=== PATIENT | male | born 1965 | race African-American/Black ===

== ENCOUNTER 2019-06-20 08:21 | Inpatient (IN) | payer OTHER ==
[2019-06-20 08:56] VITALS: BMI 21.7
--- NOTE | 2019-06-20 09:27 | HP ---
COWS - Scale Resting Pulse: 1= [place] 81-100 Sweatin= Chills/Flushing Restless Observation: 1= Difficult to Sit Still Pupil Size: 1= Pupils >than Normal Bone or Joint Aches: 2= Severe Diffuse Aches Runny Nose/ Eye Tearin= Nasal Congestion GI Upset > 30mins: 2= Nausea/Diarrhea Tremor Observation: 2= Slight Tremor Visible Yawning Observation: 1= 1-2x During Session Anxiety or Irritability: 2=Irritable/Anxious Goose Flesh Skin: 0=Smooth Skin COWS Score: 14 CIWA Score Nausea/Vomitin Muscle Tremors: 2 Anxiety: 3 Agitation: 2 Paroxysmal Sweats: 1-Minimal Palms Moist Orientation: 0-Oriented Tacttile Disturbances: 1-Very Mild Itch/Numbness Auditory Disturbances: 0-None Visual Disturbances: 0-None Headache: 2-Mild CIWA-Ar Total Score: 13 - Admission Criteria OASAS Guidelines: Admission for Medically Managed Detox: Requires at least one of the followin. CIWA greater than 12 2. Seizures within the past 24 hours 3. Delirium tremens within the past 24 hours 4. Hallucinations within the past 24 hours 5. Acute intervention needed for co occurring medical disorder 6. Acute intervention needed for co occurring psychiatric disorder 7. Severe withdrawal that cannot be handled at a lower level of care (continued vomiting, continued diarrhea, abnormal vital signs) requiring intravenous medication and/or fluids 8. Admitting History and Physical - Admission Chief Complaint: i need helpto stop using heroin,oxycontin,alcohol History of Present Illness: this 53 years old male with heroin,oxycontin and alcohol dependence seeking detox,need help to stop ,withdrawal symptom, denied seizure denied syncope weight loss nicotine dependence low back pain with sciatica right History Source: Patient Limitations to Obtaining History: No Limitations - Past Medical History Musculoskeletal: Yes: Chronic low back pain (sciatica right) - Smoking History Smoking history: Current every day smoker Have you smoked in the past 12 months: Yes Aproximately how many cigarettes per day: 10 - Alcohol/Substance Use Hx Alcohol Use: Yes History of Substance Use: reports: Heroin - Social History Usual Living Arrangement: Yes: With Significant Other (with girlfriend) ADL: Support Services Occupation: unemployed on disability History of Recent Travel: No Admission ROS BHS - HPI Chief Complaint: i need help to stop using heroin,oxycontin,alcohol Allergies/Adverse Reactions: Allergies Allergy/AdvReac Type Severity Reaction Status Date / Time No Known Allergies Allergy Verified 06/20/19 08:47 History of Present Illness: this 53 years old with heroin,oxycontin and alcohol dependence,seeking detox, withdrawal symptom denied seizure denied syncope chronic low back pain with sciatica right - Ebola screening Have you traveled outside of the country in the last 21 days: No Have you had contact with anyone from an Ebola affected area: No - Review of Systems Constitutional: Chills, Loss of Appetite, Malaise, Night Sweats, Changes in sleep, Weakness, Unintentional Wgt. Loss EENT: reports: Tearing, Nose Congestion Respiratory: reports: No Symptoms reported Cardiac: reports: No Symptoms Reported GI: reports: Nausea, Poor Appetite, Abdominal cramping : reports: No Symptoms Reported, Testicular Pain Musculoskeletal: reports: Back Pain, Muscle Pain, Joint Stiffness, Other (low back pain) Integumentary: reports: Dryness Neuro: reports: Headache, Tremors Endocrine: reports: No Symptoms Reported Hematology: reports: No Symptoms Reported Psychiatric: reports: No Sypmtoms Reported Other Systems: Reviewed and Negative Patient History - Patient Medical History Hx Anemia: No Hx Asthma: No Hx Chronic Obstructive Pulmonary Disease (COPD): No Hx Cancer: No Hx Cardiac Disorders: No Hx Hypertension: No Hx Hypercholesterolemia: No Hx Pacemaker: No HX Cerebrovascular Accident: No Hx Seizures: No Hx Diabetes: No Hx Gastrointestinal Disorders: No Hx Liver Disease: No Hx Genitourinary Disorders: No Hx Sexually Transmitted Disorders: No Hx Renal Disease (ESRD): No Hx Thyroid Disease: No Hx Human Immunodeficiency Virus (HIV): No (05/06 negative) Hx Hepatitis C: No Hx Depression: No Hx Suicide Attempt: No Hx Bipolar Disorder: No Hx Schizophrenia: No Other Medical History: no suicidal,no homicidal,low back pain with sciatica since 2015 - Patient Surgical History Past Surgical History: No Hx Neurologic Surgery: No Hx Cataract Extraction: No Hx Cardiac Surgery: No Hx Lung Surgery: No Hx Breast Surgery: No Hx Breast Biopsy: No Hx Abdominal Surgery: No Hx Appendectomy: No Hx Cholecystectomy: No Hx Genitourinary Surgery: No Hx Section: No Hx Orthopedic Surgery: No Anesthesia Reaction: No - PPD History Previous Implant?: Yes Documented Results: Negative w/o proof Implanted On Prior R Admission?: No PPD to be Administered?: Yes - Smoking Cessation Smoking history: Current every day smoker Have you smoked in the past 12 months: Yes Aproximately how many cigarettes per day: 10 Hx Chewing Tobacco Use: No Initiated information on smoking cessation: Yes 'Breaking Loose' booklet given: 06/20/19 - Substance & Tx. History Hx Alcohol Use: Yes Hx Substance Use: Yes Substance Use Type: Alcohol, Heroin, Opiates Hx Substance Use Treatment: No - Substances abused Alcohol Substance route: Oral Frequency: Daily Amount used: (4) 24oz beers, 1 PINT of vodka Age of first use: 6 Date of last use: 06/20/19 Oxycontin Other (specify): 15mg Substance route: Oral Frequency: Daily Amount used: 5 tabs Age of first use: 51 Date of last use: 06/18/19 Heroin Substance route: Inhalation Frequency: Daily Amount used: 2 BAGS Age of first use: 33 Date of last use: 06/20/19 Admission Physical Exam [facility] - Vital Signs Vital Signs: Vital Signs - 24 hr 06/20/19 08:51 Temperature 98.2 F Pulse Rate 85 Respiratory 18 Rate Blood Pressure 131/69 - Physical General Appearance: Yes: Moderate Distress, Tremorous, Irritable, Sweating, Anxious HEENTM: Yes: Normal ENT Inspection, HARLAN, Pharynx Normal Respiratory: Yes: Lungs Clear, Normal Breath Sounds, No Respiratory Distress Neck: Yes: Within Normal Limits, Supple, Trachea in good position Breast: Yes: Within Normal Limits Cardiology: Yes: Within Normal Limits, Regular Rhythm, Regular Rate, S1, S2 Abdominal: Yes: Within Normal Limits, Normal Bowel Sounds, Non Tender, Flat, Soft Genitourinary: Yes: Within Normal Limits Back: Yes: Muscle Spasm Musculoskeletal: Yes: full range of Motion, Back pain, Muscle Pain Extremities: Yes: Tremors Neurological: Yes: test hole driller II-XII NML intact, Fully Oriented, Alert, Motor Strength 5/5 Integumentary: Yes: Within Normal Limits, Dry Lymphatic: Yes: Within Normal Limits - Diagnostic (1) Opioid dependence with withdrawal Current Visit: Yes Status: Acute (2) Alcohol dependence with uncomplicated withdrawal Current Visit: Yes Status: Acute (3) Alcohol dependence with intoxication Current Visit: Yes Status: Acute (4) Chronic low back pain with sciatica Current Visit: Yes Status: Acute Cleared for Admission BHS - Detox or Rehab [facility] Level of Care: Medically Managed Detox Regimen/Protocol: Methadone/Librium Breathalyzer - Breathalyzer Breathalyzer: 202 Urine Drug Screen - Test Device Lot number: [id number] Expiration date: 03/17/21 - Control Is test valid?: Yes - Results Drug screen NEGATIVE: No Urine drug screen results: FEN-Fentanyl, MOP-Opiates, OXY-Oxycodone Inpatient Rehab Admission - Rehab Decision to Admit Inpatient rehab admission?: No
[2019-06-20] MEDS ORDERED: MENTHOL/PHENOL 1 EACH UD MM PRN (09:40)
[2019-06-20] MEDS ORDERED: chlordiazePOXIDE HCL 25 MG CAPSULE PO PRN (09:40)
[2019-06-20] MEDS ORDERED: MAGNESIUM CITRATE 300 ML BOTTLE PO PRN (09:40)
[2019-06-20] MEDS ORDERED: MAGNESIUM HYDROX 2400MG/30ML ORAL SUSPENSION 30 ML CUP PO PRN (09:40)
[2019-06-20] MEDS ORDERED: IBUPROFEN 400 MG TABLET (FP) PO PRN (09:40)
[2019-06-20] MEDS ORDERED: cloNIDine HCL 0.1 MG TABLET PO PRN (09:40)
[2019-06-20] MEDS ORDERED: BISMUTH SUBSALICYLATE 262 MG/15 ML BTL PO PRN (09:40)
[2019-06-20] MEDS ORDERED: NICOTINE POLACRILEX 2 MG GUM BUC PRN (09:40)
[2019-06-20] MEDS ORDERED: MAG HYDROX/AL HYDROX/SIMETH 30 ML UNIT-DOSE CUP PO PRN (09:40)
[2019-06-20] MEDS ORDERED: ACETAMINOPHEN 325 MG TABLET (FP) PO PRN ×2 (09:40)
[2019-06-20] MEDS ORDERED: METHOCARBAMOL 500 MG TABLET PO PRN (09:40)
[2019-06-20] MEDS ORDERED: hydrOXYzine PAMOATE 25 MG CAPSULE (FP) PO PRN (09:40)
[2019-06-20] MEDS ORDERED: METHADONE HCL 10 MG TABLET (FOR DETOX USE ONLY) PO ONE (10:25)
[2019-06-20] MEDS: chlordiazePOXIDE HCL 25 MG CAPSULE PO SCH ×3 (10:33→22:02)
[2019-06-20] MEDS: PRENATAL VITAMINS W/ FOLIC ACID TABLET (FP) PO SCH (10:37)
[2019-06-20 15:28] LABS: HEMATOCRIT 40.5 % (35.4-49); HEMOGLOBIN 13.7 GM/dL (11.7-16.9); MCH 34.7 pg (25.7-33.7); MCHC 33.7 g/dl (32.0-35.9); MEAN CELL VOLUME 102.8 fl (80-96); PLATELET COUNT 204 K/MM3 (134-434); RBC 3.94 M/mm3 (4.00-5.60); RDW 13.8 % (11.9-15.9); WHITE BLOOD COUNT 5.1 K/mm3 (4.0-10.0)
[2019-06-20 15:42] LABS: ALBUMIN 4.3 g/dl (3.4-5.0); BILIRUBIN,TOTAL 0.4 mg/dL (0.2-1); BLOOD UREA NITROGEN 10.1 mg/dL (7-18); CALCIUM 9.1 mg/dL (8.5-10.1); CREATININE 0.7 mg/dL (0.55-1.3); POTASSIUM 4.1 mmol/L (3.5-5.1); TOT PROT 8.1 g/dl (6.4-8.2)
[2019-06-20 15:51] LABS: SICKLE CELL SCREEN NEGATIVE (NEGATIVE)
[2019-06-20] MEDS: NICOTINE 21 MG/24 HOURS TOPICAL PATCH TD SCH (21:26)
[2019-06-20] MEDS: THIAMINE HCL 100 MG TABLET (FP) PO SCH (21:26)
[2019-06-20] MEDS: MELATONIN 5 MG TABLETS PO PRN (22:03)
[2019-06-21] MEDS: chlordiazePOXIDE HCL 25 MG CAPSULE PO SCH ×4 (05:53→22:26)
[2019-06-21] MEDS ORDERED: METHADONE HCL 5 MG TABLET (FOR DETOX USE ONLY) ONE (09:14)
[2019-06-21] MEDS ORDERED: METHADONE HCL 10 MG TABLET (FOR DETOX USE ONLY) ONE (09:14)
[2019-06-21] MEDS ORDERED: METHADONE (DETOX) 20 MG, METHADONE (DETOX) 5 MG PO ONE (10:00)
[2019-06-21] MEDS: NICOTINE 21 MG/24 HOURS TOPICAL PATCH TD SCH (10:33)
[2019-06-21] MEDS: PRENATAL VITAMINS W/ FOLIC ACID TABLET (FP) PO SCH (10:34)
[2019-06-21 10:41] LABS: PH,URINE 8.5 (5.0-8.0); URINE APPEARANCE CLEAR; URINE BILIRUBIN NEGATIVE (NEGATIVE); URINE COLOR YELLOW; URINE GLUCOSE (UA) NEGATIVE (NEGATIVE); URINE KETONE NEGATIVE (NEGATIVE); URINE LEUK ESTERASE NEGATIVE (NEGATIVE); URINE NITRITE NEGATIVE (NEGATIVE); URINE PROTEIN NEGATIVE (NEGATIVE)
--- NOTE | 2019-06-21 14:44 | PN ---
S CIWA - CIWA Score Nausea/Vomitin-Mild Nausea/No Vomiting Muscle Tremors: 3 Anxiety: 2 Agitation: 2 Paroxysmal Sweats: 2 Orientation: 0-Oriented Tacttile Disturbances: 0-None Auditory Disturbances: 0-None Visual Disturbances: 0-None Headache: 1-Very Mild CIWA-Ar Total Score: 11 BHS COWS - Scale Resting Pulse: 1= [place] 81-100 Sweatin= Chills/Flushing Restless Observation: 1= Difficult to Sit Still Pupil Size: 1= Pupils >than Normal Bone or Joint Aches: 1= Mild Discomfort Runny Nose/ Eye Tearin= Nasal Congestion GI Upset > 30mins: 1= Stomach Cramp Tremor Observation of Outstretched Hands: 1= Tremor [place], Not Seen Yawning Observation: 1= 1-2x During Session Anxiety or Irritability: 1=Feels Anxious/Irritable Goose Flesh Skin: 3=Piloerection COWS Score: 13 S Progress Note (SOAP) Subjective: pt here for heroin and alcohol detox O: Vital Signs - 24 hr 06/20/19 06/20/19 06/21/19 17:37 21:54 00:30 Temperature 97.9 F 99.3 F Pulse Rate 90 84 Respiratory 18 18 18 Rate Blood Pressure 144/89 150/90 06/21/19 06/21/19 06/21/19 03:50 08:41 10:06 Temperature 98.2 F 98.2 F Pulse Rate 66 77 Respiratory 18 18 16 Rate Blood Pressure 146/83 137/80 Laboratory Tests 06/20/19 06/20/19 06/20/19 09:40 09:40 09:40 WBC 5.1 RBC 3.94 L Hgb 13.7 Hct 40.5 MCV 102.8 H MCH 34.7 H MCHC 33.7 RDW 13.8 Plt Count 204 MPV 9.0 Sickle Cell Screen Negative Sodium 136 Potassium 4.1 Chloride 100 Carbon Dioxide 28 Anion Gap 9 BUN 10.1 Creatinine 0.7 Est GFR (CKD-EPI)AfAm 124.87 Est GFR (CKD-EPI)NonAf 107.74 Random Glucose 87 Calcium 9.1 Total Bilirubin 0.4 AST 99 H ALT 75 H Alkaline Phosphatase 133 H Total Protein 8.1 Albumin 4.3 Urine Color Urine Appearance Urine pH Ur Specific [place] Urine Protein Urine Glucose (UA) Urine Ketones Urine Blood Urine Nitrite Urine Bilirubin Urine Urobilinogen Ur Leukocyte Esterase RPR Titer Nonreactive 06/21/19 07:20 WBC RBC Hgb Hct MCV MCH MCHC RDW Plt Count MPV Sickle Cell Screen Sodium Potassium Chloride Carbon Dioxide Anion Gap BUN Creatinine Est GFR (CKD-EPI)AfAm Est GFR (CKD-EPI)NonAf Random Glucose Calcium Total Bilirubin AST ALT Alkaline Phosphatase Total Protein Albumin Urine Color Yellow Urine Appearance Clear Urine pH 8.5 H Ur Specific [place] 1.013 Urine Protein Negative Urine Glucose (UA) Negative Urine Ketones Negative Urine Blood Negative Urine Nitrite Negative Urine Bilirubin Negative Urine Urobilinogen 1.0 Ur Leukocyte Esterase Negative RPR Titer high MCV, no anemia a/p: continue alcohol and opioid detox pt has no complaints
[2019-06-21] MEDS: THIAMINE HCL 100 MG TABLET (FP) PO SCH (22:26)
[2019-06-21] MEDS: MELATONIN 5 MG TABLETS PO PRN (22:26)
--- NOTE | 2019-06-21 23:25 | EKG ---
Test Reason : Blood Pressure : / mmHG Vent. Rate : 081 BPM Atrial Rate : 081 BPM P-R Int : 144 ms QRS Dur : 084 ms QT Int : 376 ms P-R-T Axes : 066 088 065 degrees QTc Int : 436 ms NORMAL SINUS RHYTHM NORMAL ECG NO PREVIOUS ECGS AVAILABLE Confirmed by LINDA AMARAL MD ([id number]) on 06/21/2019 11:25:10 PM Referred By: Confirmed By:LINDA AMARAL MD
[2019-06-22] MEDS: chlordiazePOXIDE HCL 25 MG CAPSULE PO SCH ×2 (05:56→10:31)
[2019-06-22 09:11] VITALS: TEMP 97.7
[2019-06-22] MEDS ORDERED: METHADONE HCL 10 MG TABLET (FOR DETOX USE ONLY) PO ONE (10:00)
[2019-06-22] MEDS: NICOTINE 21 MG/24 HOURS TOPICAL PATCH TD SCH (10:31)
[2019-06-22] MEDS: PRENATAL VITAMINS W/ FOLIC ACID TABLET (FP) PO SCH (10:31)
[2019-06-22 14:18] VITALS: BP 150/87; PULSE 72
--- NOTE | 2019-06-22 16:43 | DS ---
[facility] Detox Discharge Summary Admission Date: 06/20/19 Discharge Date: 06/22/19 - History Present History: Alcohol Dependence, Opioid Dependence Additional Comments: Pt demanded to leave AMA despite encouragement from staff to complete detox. Pt instructed to call [phone] SUPA if sick or withdrawal sxs and to follow up with PCP within 3 days Pertinent Past History: Chronic LBP with right sciatica - Physical Exam Results Vital Signs: Vital Signs Temperature 97.7 F 06/22/19 14:18 Pulse Rate 72 06/22/19 14:18 Respiratory Rate 18 06/22/19 14:18 Blood Pressure 150/87 06/22/19 14:18 O2 Sat by Pulse Oximetry (%) Pertinent Admission Physical Exam Findings: Withdrawal sxs Laboratory Tests 06/20/19 06/20/19 06/20/19 09:40 09:40 09:40 WBC 5.1 RBC 3.94 L Hgb 13.7 Hct 40.5 MCV 102.8 H MCH 34.7 H MCHC 33.7 RDW 13.8 Plt Count 204 MPV 9.0 Sickle Cell Screen Negative Sodium 136 Potassium 4.1 Chloride 100 Carbon Dioxide 28 Anion Gap 9 BUN 10.1 Creatinine 0.7 Est GFR (CKD-EPI)AfAm 124.87 Est GFR (CKD-EPI)NonAf 107.74 Random Glucose 87 Calcium 9.1 Total Bilirubin 0.4 AST 99 H ALT 75 H Alkaline Phosphatase 133 H Total Protein 8.1 Albumin 4.3 Urine Color Urine Appearance Urine pH Ur Specific [place] Urine Protein Urine Glucose (UA) Urine Ketones Urine Blood Urine Nitrite Urine Bilirubin Urine Urobilinogen Ur Leukocyte Esterase RPR Titer Nonreactive 06/21/19 07:20 WBC RBC Hgb Hct MCV MCH MCHC RDW Plt Count MPV Sickle Cell Screen Sodium Potassium Chloride Carbon Dioxide Anion Gap BUN Creatinine Est GFR (CKD-EPI)AfAm Est GFR (CKD-EPI)NonAf Random Glucose Calcium Total Bilirubin AST ALT Alkaline Phosphatase Total Protein Albumin Urine Color Yellow Urine Appearance Clear Urine pH 8.5 H Ur Specific [place] 1.013 Urine Protein Negative Urine Glucose (UA) Negative Urine Ketones Negative Urine Blood Negative Urine Nitrite Negative Urine Bilirubin Negative Urine Urobilinogen 1.0 Ur Leukocyte Esterase Negative RPR Titer Labs reviewed: LFTs elevated; most likely due to chronic alcoholism, follow up with PCP for monitoring - Medication Discharge Medications: Ambulatory Orders Cyclobenzaprine HCl [Flexeril -] 10 mg PO TID PRN 04/29/19 - Diagnosis (1) Nicotine dependence Status: Chronic (2) Alcohol dependence with uncomplicated withdrawal Status: Acute (3) Chronic low back pain with sciatica Status: Chronic (4) Opioid dependence with withdrawal Status: Acute (5) Elevated LFTs Status: Acute - AMA Did Patient Leave Against Medical Advice: Yes (Instructed to call 911 SUPA if sick or withdrawal sxs)
[2019-06-23] MEDS ORDERED: chlordiazePOXIDE HCL 10 MG CAPSULE PO PRN
[2019-06-23] MEDS ORDERED: chlordiazePOXIDE HCL 10 MG CAPSULE PO SCH (05:00)
[2019-06-23] MEDS ORDERED: METHADONE (DETOX) 10 MG, METHADONE (DETOX) 5 MG PO ONE (10:00)
[2019-06-24] MEDS ORDERED: chlordiazePOXIDE HCL 10 MG CAPSULE PO SCH (05:00)
[2019-06-24] MEDS ORDERED: METHADONE HCL 10 MG TABLET (FOR DETOX USE ONLY) PO ONE (10:00)
[2019-06-25] MEDS ORDERED: chlordiazePOXIDE HCL 10 MG CAPSULE PO ONE (05:00)
[2019-06-25] MEDS ORDERED: METHADONE HCL 5 MG TABLET (FOR DETOX USE ONLY) PO ONE (06:00)
== END 2019-06-22 14:39 | disposition left against medical advice (07) | DRG 770 ==
LOC: YASAS 08:21 → Y6N 09:42
PROVIDERS: ADMIT Allergy & Immunology; ATTEND Allergy & Immunology
PROC: HZ2ZZZZ Detoxification Services for Substance Abuse Treatment (ICD-10-PCS; principal; 2019-06-20)
DX: F11.23 Opioid dependence with withdrawal (principal); F10.230 Alcohol dependence with withdrawal, uncomplicated; F10.220 Alcohol dependence with intoxication, uncomplicated; F17.210 Nicotine dependence, cigarettes, uncomplicated; M54.41 Lumbago with sciatica, right side; R94.5 Abnormal results of liver function studies
CPT/HCPCS: 36415; 80053; 81003; 85027; 85660; 86593; 93005; 93010

== ENCOUNTER 2019-07-25 16:55 | Inpatient (IN) | payer OTHER ==
[2019-07-25 17:43] VITALS: BMI 20.2
--- NOTE | 2019-07-25 18:25 | HP ---
CIWA Score Nausea/Vomitin-No Nausea/No Vomiting Muscle Tremors: None Anxiety: 0-No Anxiety, at Ease Agitation: 0-Normal Activity Paroxysmal Sweats: No Perspiration Orientation: 0-Oriented Tacttile Disturbances: 1-Very Mild Itch/Numbness Auditory Disturbances: 0-None Visual Disturbances: 0-None Headache: 0-None Present CIWA-Ar Total Score: 1 - Admission Criteria OASAS Guidelines: Admission for Medically Managed Detox: Requires at least one of the followin. CIWA greater than 12 2. Seizures within the past 24 hours 3. Delirium tremens within the past 24 hours 4. Hallucinations within the past 24 hours 5. Acute intervention needed for co occurring medical disorder 6. Acute intervention needed for co occurring psychiatric disorder 7. Severe withdrawal that cannot be handled at a lower level of care (continued vomiting, continued diarrhea, abnormal vital signs) requiring intravenous medication and/or fluids 8. Patient presents the following: None of the above Admission Criteria Met: Admission criteria not met Admitting History and Physical - Admission History of Present Illness: Was sent by his program in [facility]. 5-6 24oz cans and 1/2 pint liquor 6 days a week. Some tremors. No seizures, blackout. Drank today. Had 3 X 24oz can of beer. Smokes 0.5 ppd since age 13. Using heroin 2 bags daily since age 26. Last use 07/23/2019. Uses pain pills (oxy 15mg, cyclobenzaprine 10mg) prescibed by his doc at [facility] pain management. Stopped 1 month ago on the advise of forest fire officer. States that's when he started sniffing heroin because he had been addicted to the pain pills. Pt states he has RLE weakness from a low back nerve impingement he has had for years. He has seen a neurologist and discussed the option of surgery. He states he was not interested in pursuing that option at the time. He was encouraged to meet with his neurologist again to discuss options. PMH: none PSH: none Psychiatric: none Meds: used to take meds for sciatica and low back pain All: none Soc: lives in an apt with girlfriend. Will admit for valium detox. History Source: Patient Limitations to Obtaining History: Intoxication (SHARON 0.144) - Past Medical History Musculoskeletal: Yes: Chronic low back pain (sciatica right) - Smoking History Smoking history: Current every day smoker Have you smoked in the past 12 months: Yes Aproximately how many cigarettes per day: 10 - Alcohol/Substance Use Hx Alcohol Use: Yes History of Substance Use: reports: Heroin - Social History ADL: Support Services Occupation: unemployed on disability History of Recent Travel: No Admission ROS BHS - HPI Allergies/Adverse Reactions: Allergies Allergy/AdvReac Type Severity Reaction Status Date / Time No Known Allergies Allergy Verified 07/25/19 17:33 Exam Limitations: Intoxication (SHARON 0.144. Drinks) Patient History - Patient Medical History Hx Anemia: No Hx Asthma: No Hx Chronic Obstructive Pulmonary Disease (COPD): No Hx Cancer: No Hx Cardiac Disorders: No Hx Hypertension: No Hx Hypercholesterolemia: No Hx Pacemaker: No HX Cerebrovascular Accident: No Hx Seizures: No Hx Diabetes: No Hx Gastrointestinal Disorders: No Hx Liver Disease: No Hx Genitourinary Disorders: No Hx Sexually Transmitted Disorders: No Hx Renal Disease (ESRD): No Hx Thyroid Disease: No Hx Human Immunodeficiency Virus (HIV): No (05/06 negative) Hx Hepatitis C: No Hx Depression: No Hx Suicide Attempt: No Hx Bipolar Disorder: No Hx Schizophrenia: No - Patient Surgical History Past Surgical History: No Hx Neurologic Surgery: No Hx Cataract Extraction: No Hx Cardiac Surgery: No Hx Lung Surgery: No Hx Breast Surgery: No Hx Breast Biopsy: No Hx Abdominal Surgery: No Hx Appendectomy: No Hx Cholecystectomy: No Hx Genitourinary Surgery: No Hx Section: No Hx Orthopedic Surgery: No Anesthesia Reaction: No - PPD History Date: 06/22/19 - Smoking Cessation Smoking history: Current every day smoker Have you smoked in the past 12 months: Yes Aproximately how many cigarettes per day: 10 Hx Chewing Tobacco Use: No Initiated information on smoking cessation: Yes 'Breaking Loose' booklet given: 07/25/19 - Substance & Tx. History Substance Use Type: Alcohol Admission Physical Exam BHS - Vital Signs Vital Signs: Vital Signs - 24 hr 07/25/19 07/25/19 17:30 17:52 Temperature 98.3 F 98.3 F Pulse Rate 87 87 Respiratory 14 14 Rate Blood Pressure 125/79 125/79 - Physical General Appearance: Yes: Intoxicated (somewhat somnolent) HEENTM: Yes: EOMI, Hearing grossly Normal, Normal Voice, HARLAN, Pharynx Normal, Other (L eye with conjunctival injection. Minor scrapes on L face) Respiratory: Yes: Within Normal Limits, Chest Non-Tender, Lungs Clear Neck: Yes: Within Normal Limits, No masses,lesions,Nodules Cardiology: Yes: Within Normal Limits, Regular Rhythm, S1, S2 Abdominal: Yes: Within Normal Limits, Normal Bowel Sounds, Non Tender, Flat, Soft, Organomegaly Extremities: Yes: Within Normal Limits. No: Pedal Edema Neurological: Yes: quality auditor II-XII NML intact, Fully Oriented, Alert, Other (B/L patellar reflexes diminished). No: Motor Strength 5/5 (RLE diminished strength of hip flexion (3/5), knee extension (3/5), knee flexion (3/5)) Breathalyzer - Breathalyzer Breathalyzer: 0.101 Urine Drug Screen - Test Device Lot number: [id number] Expiration date: 07/25/19 - Control Is test valid?: Yes - Results Drug screen NEGATIVE: No Urine drug screen results: MTD-Methadone Inpatient Rehab Admission - Rehab Decision to Admit Inpatient rehab admission?: No
[2019-07-25] MEDS ORDERED: MAG HYDROX/AL HYDROX/SIMETH 30 ML UNIT-DOSE CUP PO PRN (18:47)
[2019-07-25] MEDS ORDERED: BISMUTH SUBSALICYLATE 524 MG/30 ML UD PO PRN (18:47)
[2019-07-25] MEDS ORDERED: MENTHOL/PHENOL 1 EACH UD MM PRN (18:47)
[2019-07-25] MEDS ORDERED: hydrOXYzine PAMOATE 25 MG CAPSULE (FP) PO PRN (18:47)
[2019-07-25] MEDS ORDERED: METHOCARBAMOL 500 MG TABLET PO PRN (18:47)
[2019-07-25] MEDS ORDERED: IBUPROFEN 400 MG TABLET (FP) PO PRN (18:47)
[2019-07-25] MEDS ORDERED: MAGNESIUM HYDROX 2400MG/30ML ORAL SUSPENSION 30 ML CUP PO PRN (18:47)
[2019-07-25] MEDS ORDERED: MAGNESIUM CITRATE 300 ML BOTTLE PO PRN (18:47)
[2019-07-25] MEDS ORDERED: ACETAMINOPHEN 325 MG TABLET (FP) PO PRN ×2 (18:47)
--- NOTE | 2019-07-25 19:19 | PN ---
Teaching Attending Note Name of Resident: Dmitry Pang ATTENDING PHYSICIAN STATEMENT I saw and evaluated the patient. I reviewed the resident's note and discussed the case with the resident. I agree with the resident's findings and plan as documented. SUBJECTIVE: pt here requesting etoh detox , referred by [facility] 2/2 ongoing use , reports 5-6 x 24oz cans and 1/2 pint liquor 6 days a week , occasional tremors. No seizures , blackouts . tobacco : 1/2 ppd since age 13 . heroin 2 bags/day via inhalation. PMHX : R LE weakness 2/2 lumbar radiculopathy . OBJECTIVE: wnwd , intoxicated SHARON 0.144 Vital Signs - 24 hr 07/25/19 07/25/19 17:30 17:52 Temperature 98.3 F 98.3 F Pulse Rate 87 87 Respiratory 14 14 Rate Blood Pressure 125/79 125/79 ASSESSMENT AND PLAN: AUD - Valium detox
[2019-07-25] MEDS: diazePAM 5 MG TABLET PO PRN (19:35)
[2019-07-25] MEDS: THIAMINE HCL 100 MG TABLET (FP) PO SCH (22:22)
[2019-07-25] MEDS: diazePAM 5 MG TABLET PO SCH (22:22)
[2019-07-26] MEDS: diazePAM 5 MG TABLET PO SCH ×3 (05:03→22:21)
[2019-07-26] MEDS ORDERED: METHADONE HCL 10 MG TABLET PO SCH (09:30)
[2019-07-26] MEDS ORDERED: METHADONE HCL 10 MG TABLET ONE (10:29)
[2019-07-26] MEDS ORDERED: METHADONE 40 MG, METHADONE 10 MG PO SCH (10:30)
[2019-07-26] MEDS ORDERED: METHADONE HCL 40 MG DISPERSABLE TABLET ONE (10:30)
[2019-07-26] MEDS: PRENATAL VITAMINS W/ FOLIC ACID TABLET (FP) PO SCH (10:48)
[2019-07-26] MEDS: NICOTINE 14 MG/24 HOURS TOPICAL PATCH TD SCH (10:49)
[2019-07-26] MEDS: diazePAM 5 MG TABLET PO PRN (10:51)
--- NOTE | 2019-07-26 12:14 | PN ---
S CIWA - CIWA Score Nausea/Vomitin-No Nausea/No Vomiting Muscle Tremors: 2 Anxiety: 3 Agitation: 0-Normal Activity Paroxysmal Sweats: 3 Orientation: 0-Oriented Tacttile Disturbances: 0-None Auditory Disturbances: 0-None Visual Disturbances: 0-None Headache: 0-None Present CIWA-Ar Total Score: 8 BHS Progress Note (SOAP) Subjective: c/o sweats, anxiety,shakes, and headache. Objective: 07/26/19 12:12 Vital Signs 07/26/19 07/26/19 06:40 08:48 Temperature 99.3 F 98.3 F Pulse Rate 85 78 Respiratory 18 18 Rate Blood Pressure 150/90 134/77 Labs pending. Assessment: 07/26/19 12:13 AOX 3, in no respiratory distress. Full ROM, ambulating in the unit. Withdrawal symptoms. Plan: continue detox.
[2019-07-26] MEDS: MELATONIN 5 MG TABLETS PO PRN (22:21)
[2019-07-26] MEDS: THIAMINE HCL 100 MG TABLET (FP) PO SCH (22:21)
[2019-07-27] MEDS ORDERED: METHADONE HCL 40 MG DISPERSABLE TABLET ONE (05:06)
[2019-07-27] MEDS ORDERED: METHADONE HCL 10 MG TABLET ONE (05:06)
[2019-07-27] MEDS: METHADONE 40 MG, METHADONE 10 MG PO SCH (05:12)
[2019-07-27] MEDS: diazePAM 5 MG TABLET PO SCH ×2 (05:12→17:43)
[2019-07-27] MEDS: PRENATAL VITAMINS W/ FOLIC ACID TABLET (FP) PO SCH (10:24)
[2019-07-27] MEDS: NICOTINE 14 MG/24 HOURS TOPICAL PATCH TD SCH (10:25)
--- NOTE | 2019-07-27 14:03 | PN ---
S CIWA - CIWA Score Nausea/Vomitin-No Nausea/No Vomiting Muscle Tremors: 1-None Visible, but [place] Anxiety: 1-Mildly Anxious Agitation: 0-Normal Activity Paroxysmal Sweats: 1-Minimal Palms Moist Orientation: 0-Oriented Tacttile Disturbances: 0-None Auditory Disturbances: 0-None Visual Disturbances: 0-None Headache: 1-Very Mild CIWA-Ar Total Score: 4 BHS Progress Note (SOAP) Subjective: 53 years old male admitted on 07/25/19 for alcohol withdrawal sx management treating with valium detox regiment feeling better today less anxious slept through the night prefers returning to methadone program for behavior and psychosocial therapies Objective: 07/27/19 14:02 Vital Signs Temperature 96.8 F L 07/27/19 12:51 Pulse Rate 82 07/27/19 12:51 Respiratory Rate 18 07/27/19 12:51 Blood Pressure 121/71 07/27/19 12:51 O2 Sat by Pulse Oximetry (%) 07/27/19 14:04 see 06/20/19 lab report monthly lab is not necessary Assessment: 07/27/19 14:05 alcohol withdrawal Plan: valium regiment
[2019-07-27] MEDS: THIAMINE HCL 100 MG TABLET (FP) PO SCH (22:05)
[2019-07-27] MEDS: MELATONIN 5 MG TABLETS PO PRN (22:05)
[2019-07-28] MEDS ORDERED: diazePAM 5 MG TABLET PO ONE (05:00)
[2019-07-28] MEDS ORDERED: METHADONE HCL 10 MG TABLET ONE (05:50)
[2019-07-28] MEDS ORDERED: METHADONE HCL 40 MG DISPERSABLE TABLET ONE (05:51)
[2019-07-28] MEDS: METHADONE 40 MG, METHADONE 10 MG PO SCH (05:53)
[2019-07-28 07:17] VITALS: BP 137/95; PULSE 93; TEMP 97
--- NOTE | 2019-07-28 09:38 | DS ---
[facility] Detox Discharge Summary Admission Date: 07/25/19 Discharge Date: 07/28/19 - History Present History: Alcohol Dependence Additional Comments: 53 years old male admitted on 07/25/19 for alcohol withdrawal sx management treated with valium detox regiment Mr Sims has completed the valium regiment and tolerated well patient is alert oriented x 3 cardiac s1s2 regular rate rhythm respiratory clear lungs bilaterally on auscultation skin warm and dry Pertinent Past History: patient may return to methadone program for behavior and psychosocial therapies - Physical Exam Results Vital Signs: Vital Signs Temperature 97.0 F L 07/28/19 05:45 Pulse Rate 93 H 07/28/19 05:45 Respiratory Rate 18 07/28/19 05:45 Blood Pressure 137/95 07/28/19 05:45 O2 Sat by Pulse Oximetry (%) Pertinent Admission Physical Exam Findings: alcohol withdrawal 06/2019 lab report - Treatment Hospital Course: Detox Protocol Followed, Detoxed Safely, Responded well, Discharged Condition Good, Rehab Referral Accepted Patient has Accepted a Rehab Referral to: methadone program - Medication Discharge Medications: Ambulatory Orders NK [No Known Home Medication] 07/25/19 - Diagnosis (1) Methadone maintenance therapy patient Status: Chronic (2) Alcohol dependence with uncomplicated withdrawal Status: Acute (3) Nicotine dependence Status: Acute Qualifiers: Nicotine product type: cigarettes Substance use status: in withdrawal Qualified Code(s): F17.213 - Nicotine dependence, cigarettes, with withdrawal - AMA Did Patient Leave Against Medical Advice: No CIWA Score - CIWA Score Nausea/Vomitin-No Nausea/No Vomiting Muscle Tremors: 1-None Visible, but [place] Anxiety: 0-No Anxiety, at Ease Agitation: 0-Normal Activity Paroxysmal Sweats: No Perspiration Orientation: 0-Oriented Tacttile Disturbances: 0-None Auditory Disturbances: 0-None Visual Disturbances: 0-None Headache: 1-Very Mild CIWA-Ar Total Score: 2
== END 2019-07-28 08:49 | disposition home or self-care (01) | DRG 773 ==
LOC: YASAS 16:55 → Y3N 19:15
PROVIDERS: ADMIT Allergy & Immunology; ATTEND Allergy & Immunology
PROC: HZ2ZZZZ Detoxification Services for Substance Abuse Treatment (ICD-10-PCS; principal; 2019-07-25)
DX: F10.230 Alcohol dependence with withdrawal, uncomplicated (principal); F10.220 Alcohol dependence with intoxication, uncomplicated; F11.20 Opioid dependence, uncomplicated; F17.213 Nicotine dependence, cigarettes, with withdrawal; Y90.6 Blood alcohol level of 120-199 mg/100 ml; M54.41 Lumbago with sciatica, right side; G89.29 Other chronic pain